=== PATIENT | male | born 1960 | race African-American/Black ===

== ENCOUNTER 2021-11-20 22:31 | Emergency (ER) | payer BC ==
[~2021-11-20] VITALS: Ht 177.8 cm; Wt 80.0 kg
[2021-11-21] MEDS ORDERED: HYDROCODONE/ACETAMINOPHEN 5/325MG TABLET PO ONE (01:15)
[2021-11-21] MEDS ORDERED: LIDO1ADH5 TP (04:01)
[2021-11-21] MEDS ORDERED: METH-773 MT (04:01)
[2021-11-21 04:23] VITALS: BP 140/83
== END 2021-11-21 04:25 | disposition home or self-care (01) ==
LOC: ER 22:31
DX: S06.9X0A Unspecified intracranial injury without loss of consciousness, initial encounter (principal); S16.1XXA Strain of muscle, fascia and tendon at neck level, initial encounter; S00.03XA Contusion of scalp, initial encounter; M79.18 Myalgia, other site; E11.9 Type 2 diabetes mellitus without complications; I10 Essential (primary) hypertension; E78.00 Pure hypercholesterolemia, unspecified; V43.62XA Car passenger injured in collision with other type car in traffic accident, initial encounter; Y93.89 Activity, other specified; Y92.410 Unspecified street and highway as the place of occurrence of the external cause; Z88.3 Allergy status to other anti-infective agents
CPT/HCPCS: 73562; 99284